=== PATIENT | female | born 1980 | race Caucasian/White ===

== ENCOUNTER 2019-01-24 04:28 | Emergency (ER) | payer MEDICAID ==
[~2019-01-24] VITALS: Ht 160 cm; Wt 68.0 kg
[~2019-01-24 04:28] MED LIST: CARI250T; CLIN300C3 PO; HYDR-3720 PO; LRZ1T PO; NAPR-243 PO; ONDA4TAB11 PO; TRAM50TA2 PO
--- OUTSIDE RECORDS SUMMARY | 2019-01-24 04:32 | XMS REPORT | Continuity of Care Document ---
Author Author [facility] Organization [facility] Address Unknown Phone Unavailable Allergies Active Description Code Type Severity Reaction Onset Reported/Identified Relationship to Patient Clinical Status Yes NKDA NKDA Mild N/ A 06/14/2009 Medications There is no data. Problems Date Dx Coded Attending Type Code Diagnosis Diagnosed By 02/06/2011 Ot 346.90 02/06/2011 Ot 784.0 02/06/2011 Ot 346.90 04/26/2014 KIRBY GONZALES, JANET Torres Ot 787.01 04/26/2014 KIRBY GONZALES, JANET Torres Ot 787.91 04/26/2014 JANET ORR MD Ot 789.00 09/11/2014 DEBBY PATEL VERTICAL PUNCH OPERATOR Ot 305.1 09/11/2014 DEBBY PATEL VERTICAL PUNCH OPERATOR Ot 780.2 12/06/2014 CORIN PAYNE Ot 845.00 12/06/2014 CORIN PAYNE Ot 959.7 12/06/2014 CORIN PAYNE Ot E000.8 12/06/2014 CORIN PAYNE Ot E849.0 12/06/2014 CORIN PAYNE Ot E888.9 12/06/2014 CORIN PAYNE Ot E927.0 03/14/2015 SUSIE GONZALES, TORIBIO R Ot 959.7 03/14/2015 SUSIE GONZALES, TORIBIO R Ot E000.8 03/14/2015 SUSIE GONZALES, TORIBIO R Ot E849.0 03/14/2015 SUSIE GONZALES, TORIBIO R Ot E888.9 02/21/2016 SUSIE GONZALES, TORIBIO R Ot 959.7 02/21/2016 SUSIE GONZALES, TORIBIO R Ot E000.8 02/21/2016 SUSIE GONZALES, TORIBIO R Ot E849.0 02/21/2016 SUSIE GONZALES, TORIBIO R Ot E888.9 02/22/2016 SUSIE GONZALES, TORIBIO R Ot M25.532 02/22/2016 SUSIE GONZALES, TORIBIO R Ot Z87.81 02/22/2016 SUSIE GONZALES, TORIBIO R Ot M25.532 02/22/2016 SUSIE GONZALES, TORIBIO R Ot Z87.81 03/11/2016 SUSIE GONZALES, TORIBIO R Ot M25.532 PAIN IN LEFT WRIST 03/11/2016 SUSIE GONZALES, TORIBIO R Ot Z87.81 PERSONAL HISTORY OF (HEALED) TRAUMATIC F Procedures There is no data. Results There is no data. Encounters ACCT No. Visit Date/Time Discharge Status Pt. Type Provider Facility Loc./Unit Complaint [id number] 02/21/2016 16:30:00 02/21/2016 23:59:59 CLS Outpatient TORIBIO RICHARDS MD [facility] RAD [id number] 02/20/2015 15:02:00 02/20/2015 23:59:59 CLS Outpatient TORIBIO RICHARDS MD [facility] RAD [id number] 12/06/2014 21:11:00 12/06/2014 22:26:00 DIS Emergency CORIN PAYNE [facility] ER [id number] 09/11/2014 15:38:00 09/11/2014 16:33:00 DIS Emergency DEBBY PATEL APRN [facility] ER [id number] 04/26/2014 18:43:00 04/26/2014 20:13:00 DIS Emergency JANET ORR MD [facility] ER [id number] 02/06/2011 14:24:00 Document Registration [id number] 02/06/2011 10:34:00 Document Registration [email or web address] 02/20/2015 15:03:46 ACT Document Registration
[2019-01-24] MEDS ORDERED: KETOROLAC 30 MG/ML VIAL IVP STA (05:44)
[2019-01-24] MEDS ORDERED: cefTRIAXone FOR IV USE 1,000 MG in WATER (STERILE) FOR INJECTION 10 ML IV ONE (05:45)
[2019-01-24 06:05] LABS: BASOPHILS % (AUTO) 0 % (0-10); EOSINOPHILS # (AUTO) 0.2 10^3/uL (0.0-0.3); EOSINOPHILS % (AUTO) 2 % (0-10); HEMATOCRIT 38 % (35-52); HEMOGLOBIN 12.4 G/DL (11.5-16.0); LYMPHOCYTES % (AUTO) 34 % (12-44); MEAN CORPUSCULAR HEMOGLOBIN 30 PG (25-34); MEAN CORPUSCULAR HGB CONC 33 G/DL (32-36); MEAN CORPUSCULAR VOLUME 89 FL (80-99); MEAN PLATELET VOLUME 10.2 FL (7.4-10.4); MONOCYTES # (AUTO) 0.6 X 10^3 (0.0-1.0); MONOCYTES % (AUTO) 6 % (0-12); NEUTROPHILS # (AUTO) 5.1 X 10^3 (1.8-7.8); NEUTROPHILS % (AUTO) 58 % (42-75); PLATELET COUNT 263 10^3/uL (130-400); RED CELL DISTRIBUTION WIDTH 12.6 % (10.0-14.5); WHITE BLOOD COUNT 8.9 10^3/uL (4.3-11.0)
[2019-01-24 06:25] LABS: ALANINE AMINOTRANSFERASE 9 U/L (0-55); ALBUMIN 4.1 GM/DL (3.2-4.5); ALKALINE PHOSPHATASE 37 U/L (40-136); BILIRUBIN,TOTAL 0.3 MG/DL (0.1-1.0); BUN/CREATININE RATIO 14; CALCIUM 9.1 MG/DL (8.5-10.1); CARBON DIOXIDE 23 MMOL/L (21-32); CHLORIDE 108 MMOL/L (98-107); CREATININE SERUM 0.93 MG/DL (0.60-1.30); GFR ESTIMATED > 60; GLUCOSE 113 MG/DL (70-105); POTASSIUM 3.6 MMOL/L (3.6-5.0); SODIUM 140 MMOL/L (135-145); TOTAL PROTEIN 6.6 GM/DL (6.4-8.2)
--- NOTE | 2019-01-24 06:41 | ED Upper Extremity ---
General Chief Complaint: Upper Extremity Stated Complaint: L HAND PAIN,POSS BUG BITE Nursing Triage Note: Pt arrived by private vehicle for a chief complaint of possible bug bite to left pointer finger and left hand pain. Pt stated she noticed it around 0930 yesterday. She noticed 3 small bumps that started to swelling. Pt stated she can't bend or straighten her finger. Pt's finger is purple/pink color and swollen 4th finger of left hand. Nursing Sepsis Screen: No Definite Risk Source: patient Exam Limitations: no limitations History of Present Illness Date Seen by Provider: Jan 24, 2019 Time Seen by Provider: 05:39 Initial Comments Here with report of left fourth finger swelling and discoloration. Onset yesterday morning when she woke up and noted what appeared to be a few bug bites to the dorsum of the finger at the proximal phalanx. Is progressively worsened throughout the day to discoloration that was small and around the bug bites but then encompass the entire dorsum area of the proximal phalanx. Noted swelling distally and swelling to the dorsum of the hand distally near the MCP. Denies fever or chills. Never had anything like this before. Onset: yesterday Severity: moderate Pain/Injury Location: right 4th finger Method of Injury: unknown Modifying Factors: Worse With Movement; Improves With Rest Allergies and Home Medications Allergies Uncoded Allergies: NKDA (Allergy, Mild, 06/14/09) Home Medications Tramadol Hcl 50 Mg Tablet, 50 MG PO Q4H PRN for PAIN Prescribed by: CORIN DIEHL on 12/06/14 0638 Patient Home Medication List Home Medication List Reviewed: Yes Review of Systems Constitutional: see HPI; No chills, No fever Respiratory: no symptoms reported Cardiovascular: no symptoms reported Gastrointestinal: no symptoms reported; No nausea, No vomiting Musculoskeletal: joint pain, muscle pain Skin: change in color, lesions, pruritus Psychiatric/Neurological: No Symptoms Reported Past Qrgdwhx-Jyijiz-Lledvk Hx Past Med/Social Hx: Reviewed Nursing Past Med/Soc Hx Patient Social History Alcohol Use: Denies Use Recreational Drug Use: No Smoking Status: Current Everyday Smoker Type Used: Cigarettes 2nd Hand Smoke Exposure: Yes Recent Foreign Travel: No Contact w/Someone Who Travel: No Recent Infectious Disease Expo: No Recent Hopitalizations: No Physical Abuse: No Sexual Abuse: No Mistreated: No Fear: No Seasonal Allergies Seasonal Allergies: No Past Medical History Surgeries: Yes Adenoidectomy, Tonsillectomy, Tubal Ligation Respiratory: No Cardiac: No Neurological: No Gastrointestinal: No Musculoskeletal: No Endocrine: No Cancer: No Psychosocial: No Integumentary: No Blood Disorders: No Family Medical History Reviewed Nursing Family Hx Patient reports no known family medical history. No Pertinent Family Hx Physical Exam Vital Signs Vital Signs - First Documented 01/24/19 06:10 Temp 96.5 Pulse 89 Resp 18 B/P (MAP) 132/94 (107) Pulse Ox 100 O2 Delivery Room Air Capillary Refill : Less Than 3 Seconds Height, Weight, BMI Height: 5'3.00" Weight: 150lbs. 0oz. 68.659709so; BMI Method:Stated General Appearance: WD/WN, no apparent distress Cardiovascular: regular rate, rhythm, no murmur Respiratory: lungs clear, normal breath sounds Gastrointestinal: non tender, soft Wrist: Yes normal inspection, Yes non-tender, Yes no evidence of injury, Yes normal ROM Hand: Right, Left, ecchymosis, limited ROM, soft tissue tenderness, stiffness, swelling (all findings to the fourth finger with dark red/purple discoloration to the dorsum of the left fourth finger. Distal mild redness and swelling as well as proximal to the MCP joint with redness and swelling to the dorsum of the left hand.) Neurologic/Tendon: normal motor functions, normal tendon functions Neurologic/Psychiatric: alert, oriented x 3 Skin: warm/dry, ecchymosis, other (purple discoloration to the fingers described with erythema surrounding.) Progress/Results/Core Measures Results/Orders Lab Results Laboratory Tests Test 01/24/19 05:55 Range/Units White Blood Count 8.9 4.3-11.0 10^3/uL Red Blood Count 4.21 L 4.35-5.85 10^6/uL Hemoglobin 12.4 11.5-16.0 G/DL Hematocrit 38 35-52 % Mean Corpuscular Volume 89 80-99 FL Mean Corpuscular Hemoglobin 30 25-34 PG Mean Corpuscular Hemoglobin Concent 33 32-36 G/DL Red Cell Distribution Width 12.6 10.0-14.5 % Platelet Count 263 130-400 10^3/uL Mean Platelet Volume 10.2 7.4-10.4 FL Neutrophils (%) (Auto) 58 42-75 % Lymphocytes (%) (Auto) 34 12-44 % Monocytes (%) (Auto) 6 0-12 % Eosinophils (%) (Auto) 2 0-10 % Basophils (%) (Auto) 0 0-10 % Neutrophils # (Auto) 5.1 1.8-7.8 X 10^3 Lymphocytes # (Auto) 3.0 1.0-4.0 X 10^3 Monocytes # (Auto) 0.6 0.0-1.0 X 10^3 Eosinophils # (Auto) 0.2 0.0-0.3 10^3/uL Basophils # (Auto) 0.0 0.0-0.1 10^3/uL Sodium Level 140 135-145 MMOL/L Potassium Level 3.6 3.6-5.0 MMOL/L Chloride Level 108 H 98-107 MMOL/L Carbon Dioxide Level 23 21-32 MMOL/L Anion Gap 9 5-14 MMOL/L Blood Urea Nitrogen 13 7-18 MG/DL Creatinine 0.93 0.60-1.30 MG/DL Estimat Glomerular Filtration Rate > 60 BUN/Creatinine Ratio 14 Glucose Level 113 H 70-105 MG/DL Lactic Acid Level 0.53 0.50-2.00 MMOL/L Calcium Level 9.1 8.5-10.1 MG/DL Corrected Calcium 9.0 8.5-10.1 MG/DL Total Bilirubin 0.3 0.1-1.0 MG/DL Aspartate Amino Transf (AST/SGOT) 12 5-34 U/L Alanine Aminotransferase (ALT/SGPT) 9 0-55 U/L Alkaline Phosphatase 37 L 40-136 U/L C-Reactive Protein High Sensitivity 0.01 0.00-0.50 MG/DL Total Protein 6.6 6.4-8.2 GM/DL Albumin 4.1 3.2-4.5 GM/DL My Orders Orders - JANET ORR MD Cbc With Automated Diff (01/24/19 05:44) Comprehensive Metabolic Panel (01/24/19 05:44) Hs C Reactive Protein (01/24/19 05:44) Lactic Acid Analyzer (01/24/19 05:44) Blood Culture (01/24/19 05:44) Ketorolac Injection (Toradol Injection) (01/24/19 05:44) Ceftriaxone For Iv Use (Rocephin For I (01/24/19 05:45) Saline Lock/Iv-Start (01/24/19 05:44) Medications Given in ED Current Medications Medications Dose Ordered Sig/[place] Route Start Time Stop Time Status Last Admin Dose Admin Ceftriaxone Sodium 1000 mg/ Sterile Water 10 ml @ 200 mls/hr ONCE ONCE IV 01/24/19 05:45 01/24/19 05:47 DC 01/24/19 06:07 200 MLS/HR Vital Signs/I&O 01/24/19 06:10 Temp 96.5 Pulse 89 Resp 18 B/P (MAP) 132/94 (107) Pulse Ox 100 O2 Delivery Room Air Blood Pressure Mean: 107 Progress Progress Note : Progress Note Seen and evaluated. IV, labs, blood cultures and lactic acid ordered. Rocephin 1 g IV ordered. Monitor patient. 0640: No acute indications of infection. May be a hemolytic type reaction from insect bite. We will continue outpatient antibiotics due to red streaks and to prevent subsequent infection. Otherwise supportive care. Discharged home with return precautions. Patient verbalize understanding instructions and agreement with plan. Departure Impression Primary Impression: Insect bite Qualified Codes: S60.465A - Insect bite (nonvenomous) of left ring finger, initial encounter; W57.XXXA - Bitten or stung by nonvenomous insect and other nonvenomous arthropods, initial encounter Disposition: 01 HOME, SELF-CARE Condition: Stable Departure-Patient Inst. Decision time for Depature: 06:42 Referrals: TORIBIO RICHARDS MD (PCP/Family) Primary Care Physician Patient Instructions: Insect Bites and Stings (DC), Spider Bites Add. Discharge Instructions: All discharge instructions reviewed with patient and/or family. Voiced understanding. Take medications as directed. Follow-up with your DrAmanda in one to 2 days for recheck. Return for worse pain, fever, vomiting, weakness, breathing problems, red streaks up the hand or arm or other concerns as needed. Use finger splint for the next several days and then as needed. Scripts Cephalexin (Cephalexin) 500 Mg Tablet 500 MG PO QID, #20 TAB 0 Refills Prov: JANET ORR MD 01/24/19 Copy Copies To 1: TORIBIO RICHARDS MD, TIMOTHY D MD Jan 24, 2019 06:41
[2019-01-24] MEDS ORDERED: CEPH500T PO (06:50)
--- NOTE | 2019-01-24 06:56 | NUR ---
ASSUMED CARE OF PT.
[2019-01-24 07:10] VITALS: BP 135/92
== END 2019-01-24 07:10 | disposition home or self-care (01) ==
LOC: EDUNIT# 04:28 → ER 04:29
DX: S60.465A Insect bite (nonvenomous) of left ring finger, initial encounter (principal); Z90.89 Acquired absence of other organs; Z98.51 Tubal ligation status; W57.XXXA Bitten or stung by nonvenomous insect and other nonvenomous arthropods, initial encounter
CPT/HCPCS: 29130; 36415; 80053; 83605; 85025; 86141; 87040